=== PATIENT | female | born 1980 ===

== ENCOUNTER 2017-07-01 20:41 | Emergency (ER) | payer SELFPAY ==
[2017-07-01 21:06] VITALS: BP 121/72; PULSE 70; RESP 18; TEMP 98.5; O2SAT 100
[2017-07-01 21:51] LABS: SQUAMOUS EPITHIAL < 1 /hpf (0-5); URINE BACTERIA RARE (<OCC); URINE BILIRUBIN NEGATIVE (NEGATIVE); URINE BLOOD MODERATE (NEGATIVE); URINE CLARITY SLIGHTY-CLOUDY (Clear); URINE COLOR YELLOW (YELLOW); URINE GLUCOSE (UA) NEG (Normal); URINE LEUKOCYTE ESTERASE NEG Leu/uL (Negative); URINE NITRATE NEGATIVE (NEGATIVE); URINE PROTEIN NEGATIVE (NEGATIVE); URINE UROBILINOGEN 0.2-1.0 mg/dL (0.2-1.0)
[2017-07-01 21:54] LABS: BASO % 0.4 % (0.0-2.0); EOS # 0.1 K/uL (0.0-0.7); EOS % 1.4 % (0.0-4.0); HEMOGLOBIN 11.5 g/dL (12.0-16.0); LYMPH # 1.6 K/uL (1.0-4.3); LYMPH % 23.6 % (20.0-40.0); MEAN CELL VOLUME 83.5 fl (81.0-99.0); MEAN CORPUSCULAR HEMOGLOBIN 27.7 pg (27.0-31.0); MEAN CORPUSCULAR HGB CONC 33.1 g/dL (33.0-37.0); MEAN PLATELET VOLUME 8.6 fl (7.2-11.7); MONO # 0.7 K/uL (0.0-0.8); MONO % 11.1 % (0.0-10.0); NEUT # 4.2 K/uL (1.8-7.0); NEUT % 63.5 % (50.0-75.0); RBC 4.17 Mil/uL (3.80-5.20); RED CELL DISTRIBUTION WIDTH 14.6 % (11.5-14.5); WHITE BLOOD COUNT 6.6 K/uL (4.8-10.8)
[2017-07-01 22:03] LABS: ALB/GLOB RATIO 1.4 (1.0-2.1); ALBUMIN 4.1 g/dL (3.5-5.0); ALT/SGPT 31 U/L (9-52); AST/SGOT 19 U/L (14-36); BLOOD UREA NITROGEN 12 mg/dl (7-17); CALCIUM 9.2 mg/dL (8.4-10.2); GFR AFRICAN-AMERICAN > 60; GFR NON-AFRICAN AMERICAN > 60; LIPASE 112 U/L (23-300)
--- NOTE | 2017-07-01 22:48 | ED PDOC ---
HPI: Abdomen Time Seen by Provider: 07/01/17 21:07 Chief Complaint (Nursing): Abdominal Pain Chief Complaint (Provider): Abdominal Pain History Per: Patient History/Exam Limitations: no limitations Onset/Duration Of Symptoms: Days (x2 days) Outside of [place] travel?: Yes Current Symptoms Are (Timing): Still Present Associated Symptoms: denies: Nausea, Vomiting, Diarrhea, Chest Pain, Constipation Additional Complaint(s): Adela Retana, a 36 year old female, with a past medical history of ovarian cysts presents to the ED complaining of abdominal pain x2 days. The patient also reports having some lower abdominal pain which started yesterday. She also states that she had a fever Tmax of 102 when she checked at home. The patient reports that she has taken tylenol with no relief. Denies fever, cough, chest pain, nausea, vomiting, constipation, diarrhea. Abnormal Vaginal Bleeding: No Past Medical History Reviewed: Historical Data, Nursing Documentation, Vital Signs Vital Signs: Last Vital Signs Temp 98.5 F 07/01/17 21:02 Pulse 70 07/01/17 21:02 Resp 18 07/01/17 21:02 BP 121/72 07/01/17 21:02 Pulse Ox 100 07/01/17 22:53 - Medical History Other PMH: Gallstones - Surgical History Surgical History: Cholecystectomy, (x3) Other surgeries: Ovarian cyst - Family History Family History: States: Unknown Family Hx - Social History Current smoker - smoking cessation education provided: No Alcohol: None Drugs: Denies - Immunization History Hx Tetanus Toxoid Vaccination: No Hx Influenza Vaccination: No Hx Pneumococcal Vaccination: No - Home Medications Home Medications: Ambulatory Orders Medication Instructions Recorded Doxycycline Monohydrate 100 mg PO BID #14 tablet 06/07/16 Naproxen [Naprosyn Tab] 375 mg PO BID PRN #15 tab 06/07/16 Naproxen [Naprosyn] 500 mg PO Q12 #14 tab 07/01/17 - Allergies Allergies/Adverse Reactions: Allergies Allergy/AdvReac Type Severity Reaction Status Date / Time Penicillins Allergy Severe RASH Verified 06/07/16 07:34 Review of Systems ROS Statement: Except As Marked, All Systems Reviewed And Found Negative Constitutional: Negative for: Fever Cardiovascular: Negative for: Chest Pain Respiratory: Negative for: Shortness of Breath Gastrointestinal: Positive for: Abdominal Pain. Negative for: Nausea, Vomiting , Diarrhea, Constipation Physical Exam - Reviewed Nursing Documentation Reviewed: Yes Vital Signs Reviewed: Yes - Physical Exam Appears: Positive for: Non-toxic, No Acute Distress Head Exam: Positive for: ATRAUMATIC, NORMAL INSPECTION, NORMOCEPHALIC Skin: Positive for: Normal Color, Warm, Dry Eye Exam: Positive for: Normal appearance, EOMI, PERRL ENT: Positive for: Normal ENT Inspection Neck: Positive for: Normal, Painless ROM, Supple Cardiovascular/Chest: Positive for: Regular Rate, Rhythm, Chest Non Tender. Negative for: Tachycardia Respiratory: Positive for: Normal Breath Sounds. Negative for: Wheezing, Respiratory Distress Gastrointestinal/Abdominal: Positive for: Tenderness (suprapubic tenderness). Negative for: Bowel Sounds, Soft, Guarding, Rebound Back: Positive for: Normal Inspection. Negative for: L CVA Tenderness, R CVA Tenderness Extremity: Positive for: Normal ROM. Negative for: Tenderness, Pedal Edema, Deformity, Swelling Neurologic/Psych: Positive for: Alert, Oriented, Gait - Laboratory Results Result Diagrams: 07/01/17 21:50 07/01/17 21:50 - ECG O2 Sat by Pulse Oximetry: 100 (RA) Pulse Ox Interpretation: Normal Medical Decision Making Medical Decision Makin Initial Impression: 36 year old female presenting with abdominal pain Initial Plan: * CMP * Lipase * Upreg * Udip * CBC * Toradol 10mg IV * Urinalysis * US Pelvis/Transvaginal * Reevaluation 23:50 US Pelvis/Transvaginal FINDINGS: Uterus/cervix: Unremarkable in echogenicity and size measuring 13.0 x 3.8 x 5.2 centimeters. Normal endometrial stripe thickness, measuring 9 mm. No myometrial mass. Right ovary: Unremarkable in echogenicity and size measuring 3.2 x 2.2 x 3.4 cm. No mass. Normal blood flow. Left ovary: Unremarkable in echogenicity and size measuring 2.4 x 1.3 x 2.6 cm. No mass. Normal blood flow. Free fluid: No free fluid. IMPRESSION: Unremarkable sonographic evaluation of the pelvis, as detailed above. Labs reviewed, no clinically significant abnormalities. Patient has been referred to [facility] for follow up. Patient reports improvement in symptoms and is stable for discharge home. Clinical Impression: Abdominal Pain - Scribe Attestation Documented by Oneyda Irene acting as a scribe for José Pool MD. Provider Attestation All medical record entries made by the Scribe were at my direction and personally dictated by me. I have reviewed the chart and agree that the record accurately reflects my personal performance of the history, physical exam, medical decision making, and the department course for this patient. I have also personally directed, reviewed, and agree with the discharge instructions and disposition. Disposition - Clinical Impression Clinical Impression: Abdominal pain in female - Patient ED Disposition Is Patient to be Admitted: No - Disposition Referrals: [facility] [Outside] [facility] [Outside] Disposition: Routine/Home Disposition Time: 23:50 Condition: STABLE Prescriptions: Naproxen [Naprosyn] 500 mg PO Q12 #14 tab Instructions: Abdominal Pain (ED) Forms: [employer] ([place]), [facility] ED School/Work Excuse
--- NOTE | 2017-07-01 23:31 | US ---
EXAM: US Pelvis Complete, Transabdominal CLINICAL HISTORY: 36 years old, female; Pain; Pelvic pain; Additional info: Pelvic pain; HX ov cysts TECHNIQUE: Real-time transabdominal pelvic ultrasound (complete) with image documentation. COMPARISON: No relevant prior studies available. FINDINGS: Uterus/cervix: Unremarkable in echogenicity and size measuring 13.0 x 3.8 x 5.2 centimeters. Normal endometrial stripe thickness, measuring 9 mm. No myometrial mass. Right ovary: Unremarkable in echogenicity and size measuring 3.2 x 2.2 x 3.4 cm. No mass. Normal blood flow. Left ovary: Unremarkable in echogenicity and size measuring 2.4 x 1.3 x 2.6 cm. No mass. Normal blood flow. Free fluid: No free fluid. IMPRESSION: Unremarkable sonographic evaluation of the pelvis, as detailed above.
== END 2017-07-02 00:03 | disposition home or self-care (01) ==
LOC: H.ER 20:41
DX: R10.9 Unspecified abdominal pain (principal); Z88.0 Allergy status to penicillin
CPT/HCPCS: 76856; 80053; 81003; 81025; 83690; 85025; 99283; J1885

== ENCOUNTER 2017-09-03 16:33 | Emergency (ER) | payer OTHER ==
[2017-09-03 16:42] VITALS: BP 114/67; PULSE 67; RESP 16; TEMP 98.5; O2SAT 95
[2017-09-03] MEDS ORDERED: Sodium Chloride 0.9% 1,000 ML IV STA (17:02)
--- NOTE | 2017-09-03 17:16 | ED PDOC ---
HPI: General Adult Time Seen by Provider: 09/03/17 16:46 Chief Complaint (Nursing): Headache History Per: Patient Additional Complaint(s): Pt. states for the past 2 days she's had a frontal headache associated with nausea and 1 episode of non-bloody vomiting. Also states that this morning she took her temperature which was 101.1. She took Tylenol at 1000 without relief of headache. Reports headache is gradual in onset and is atraumatic. Denies numbness, tingling, abdominal pain, hematemesis, chest pain, cough, congestion, sore throat, rash, neck pain or stiffness, diarrhea. Past Medical History Reviewed: Historical Data, Nursing Documentation, Vital Signs Vital Signs: Last Vital Signs Temp 98.5 F 09/03/17 16:39 Pulse 67 09/03/17 16:39 Resp 16 09/03/17 16:39 BP 114/67 09/03/17 16:39 Pulse Ox 95 09/03/17 17:17 - Surgical History Surgical History: Cholecystectomy, (x3) - Family History Family History: States: No Known Family Hx - Immunization History Hx Tetanus Toxoid Vaccination: No Hx Influenza Vaccination: No Hx Pneumococcal Vaccination: No - Home Medications Home Medications: Ambulatory Orders Medication Instructions Recorded Doxycycline Monohydrate 100 mg PO BID #14 tablet 06/07/16 Naproxen [Naprosyn Tab] 375 mg PO BID PRN #15 tab 06/07/16 Naproxen [Naprosyn] 500 mg PO Q12 #14 tab 07/01/17 Metoclopramide [Reglan] 10 mg PO Q8 PRN #15 tab 09/03/17 - Allergies Allergies/Adverse Reactions: Allergies Allergy/AdvReac Type Severity Reaction Status Date / Time Penicillins Allergy Severe RASH Verified 06/07/16 07:34 Review of Systems ROS Statement: Except As Marked, All Systems Reviewed And Found Negative Gastrointestinal: Positive for: Nausea, Vomiting Neurological: Positive for: Headache Physical Exam - Reviewed Nursing Documentation Reviewed: Yes Vital Signs Reviewed: Yes - Physical Exam Appears: Positive for: Well, Non-toxic, No Acute Distress Head Exam: Positive for: ATRAUMATIC, NORMAL INSPECTION, NORMOCEPHALIC Skin: Positive for: Normal Color, Warm. Negative for: Rash Eye Exam: Positive for: EOMI, Normal appearance, PERRL ENT: Positive for: Normal ENT Inspection. Negative for: Pharyngeal Erythema, Tonsillar Exudate, Tonsillar Swelling Neck: Positive for: Normal, Painless ROM, Supple. Negative for: Pain On Movement Of Neck Cardiovascular/Chest: Positive for: Regular Rate, Rhythm Respiratory: Positive for: CNT, Normal Breath Sounds Gastrointestinal/Abdominal: Positive for: Normal Exam, Bowel Sounds, Soft. Negative for: Tenderness Back: Positive for: Normal Inspection. Negative for: L CVA Tenderness, R CVA Tenderness Extremity: Positive for: Normal ROM Neurologic/Psych: Positive for: Alert, Oriented - Laboratory Results Result Diagrams: 09/03/17 17:30 09/03/17 17:30 - ECG O2 Sat by Pulse Oximetry: 95 - Progress ED Course And Treament: Labs ordered. Reglan 10mg IVPB, IV NS bolus ordered. CT head w/o contrast: negative. On re-evaluation, pt. reports complete relief of headache. Disposition - Clinical Impression Clinical Impression: Migraine - Patient ED Disposition Is Patient to be Admitted: No - Disposition Referrals: [facility] [Outside] [facility] [Outside] Disposition: Routine/Home Disposition Time: 19:07 Condition: STABLE Prescriptions: Metoclopramide [Reglan] 10 mg PO Q8 PRN #15 tab PRN Reason: nausea or headache Instructions: General Headache (ED) Forms: Rep (Uzbek)
--- NOTE | 2017-09-03 17:34 | CT ---
PROCEDURE: CT HEAD WITHOUT CONTRAST. HISTORY: headache COMPARISON: None available. TECHNIQUE: Axial computed tomography images were obtained through the head/brain without intravenous contrast. Radiation dose: Total exam DLP = 781.27 mGy-cm. This CT exam was performed using one or more of the following dose reduction techniques: Automated exposure control, adjustment of the mA and/or kV according to patient size, and/or use of iterative reconstruction technique. FINDINGS: HEMORRHAGE: No intracranial hemorrhage. BRAIN: No mass effect or edema. The hensley-white matter differentiation appears intact. VENTRICLES: No hydrocephalus. CALVARIUM: Unremarkable. PARANASAL SINUSES: Unremarkable as visualized. No significant inflammatory changes. MASTOID AIR CELLS: Unremarkable as visualized. No inflammatory changes. OTHER FINDINGS: None. IMPRESSION: No acute intracranial pathology identified.
[2017-09-03 17:45] LABS: BASO % 0.5 % (0.0-2.0); EOS # 0.1 K/uL (0.0-0.7); EOS % 1.5 % (0.0-4.0); HEMATOCRIT 34.5 % (34.0-47.0); MEAN CELL VOLUME 84.5 fl (81.0-99.0); MEAN CORPUSCULAR HEMOGLOBIN 26.8 pg (27.0-31.0); MEAN CORPUSCULAR HGB CONC 31.7 g/dL (33.0-37.0); MEAN PLATELET VOLUME 8.6 fl (7.2-11.7); MONO # 0.5 K/uL (0.0-0.8); MONO % 8.7 % (0.0-10.0); NEUT # 3.3 K/uL (1.8-7.0); NEUT % 55.3 % (50.0-75.0); NRBC % 0.2 % (0.0-0.0); RED CELL DISTRIBUTION WIDTH 14.8 % (11.5-14.5)
[2017-09-03 17:55] LABS: ALB/GLOB RATIO 1.2 (1.0-2.1); ALKALINE PHOSPHATASE 52 U/L (38-126); ALT/SGPT 22 U/L (9-52); AST/SGOT 20 U/L (14-36); BILIRUBIN,TOTAL 0.3 mg/dl (0.2-1.3); BLOOD UREA NITROGEN 12 mg/dl (7-17); CALCIUM 9.2 mg/dL (8.4-10.2); CARBON DIOXIDE 26 mmol/L (22-30); CHLORIDE 104 mmol/L (98-107); GFR AFRICAN-AMERICAN > 60; GLUCOSE,RANDOM 108 mg/dL (65-105); SODIUM 141 mmol/l (132-148); TOTAL PROTEIN 7.2 G/DL (6.3-8.2)
[2017-09-03 18:01] LABS: POTASSIUM 3.4 MMOL/L (3.6-5.0)
== END 2017-09-03 19:25 | disposition home or self-care (01) ==
LOC: H.ER 16:33
DX: G43.909 Migraine, unspecified, not intractable, without status migrainosus (principal)
CPT/HCPCS: 70450; 80053; 81025; 85025; 96361; 96365; 99285; J2765; J7040

== ENCOUNTER 2018-07-17 20:08 | Emergency (ER) | payer SELFPAY ==
[2018-07-17 20:18] VITALS: BP 134/84; PULSE 80; RESP 16; TEMP 98.4; O2SAT 100
[2018-07-17] MEDS ORDERED: Sodium Chloride 0.9% 1,000 ML IV STA (20:38)
--- NOTE | 2018-07-17 21:11 | ED PDOC ---
HPI: Headache Time Seen by Provider: 07/17/18 20:20 Chief Complaint (Nursing): Headache Chief Complaint (Provider): Headache History Per: Patient History/Exam Limitations: no limitations Onset/Duration Of Symptoms: Days Current Symptoms Are (Timing): Still Present Quality: Pressure Additional Complaint(s): 37 y/o female with a PMHx of hyperthyroidism presents to the ED complaining of a pressure like headache associated with pain to her left cheek, neck and shoulder. Patient also reports of feeling like her eye is twitching. Patient states headache began on Saturday after having increased stress related to her family and issues going on at home. Denies depression, anxiety, numbness, focal weakness, blurry vision and an unsteady gait. PMD: Dr. Lazaro Roman. Past Medical History Reviewed: Historical Data, Nursing Documentation, Vital Signs Vital Signs: Last Vital Signs Temp 98.4 F 07/17/18 20:15 Pulse 80 07/17/18 20:15 Resp 16 07/17/18 20:15 BP 134/84 07/17/18 20:15 Pulse Ox 100 07/17/18 20:15 - Medical History PMH: Hyperthyroidism - Surgical History Surgical History: Cholecystectomy, (x3) - Family History Family History: States: Hypertension - Social History Current smoker - smoking cessation education provided: No Alcohol: None Drugs: Denies - Immunization History Hx Tetanus Toxoid Vaccination: No Hx Influenza Vaccination: No Hx Pneumococcal Vaccination: No - Home Medications Home Medications: Ambulatory Orders Medication Instructions Recorded Doxycycline Monohydrate 100 mg PO BID #14 tablet 06/07/16 Naproxen [Naprosyn Tab] 375 mg PO BID PRN #15 tab 06/07/16 Naproxen [Naprosyn] 500 mg PO Q12 #14 tab 07/01/17 Metoclopramide [Reglan] 10 mg PO Q8 PRN #15 tab 09/03/17 Cyclobenzaprine [Flexeril] 5 mg PO Q8 PRN #15 tab 07/17/18 Ibuprofen [Motrin Tab] 600 mg PO Q8 PRN #60 tab 07/17/18 - Allergies Allergies/Adverse Reactions: Allergies Allergy/AdvReac Type Severity Reaction Status Date / Time Penicillins Allergy Severe RASH Verified 06/07/16 07:34 Review of Systems ROS Statement: Except As Marked, All Systems Reviewed And Found Negative (as per HPI) Eyes: Positive for: Other (Twitch). Negative for: Vision Change ENT: Positive for: Other (Left cheek) Musculoskeletal: Positive for: Neck Pain, Shoulder Pain Neurological: Positive for: Headache. Negative for: Weakness, Numbness, Other ( unsteady gait) Physical Exam - Reviewed Nursing Documentation Reviewed: Yes Vital Signs Reviewed: Yes - Physical Exam Appears: Positive for: No Acute Distress (Tired appearing) Head Exam: Positive for: ATRAUMATIC, NORMOCEPHALIC Skin: Positive for: Warm, Dry Eye Exam: Positive for: EOMI, PERRL ENT: Positive for: Other (Mild tenderness to the maxillary area. ) Neck: Negative for: Normal (Mild tenderness to palpation to the midline and left paraspinal c-spine. ) Cardiovascular/Chest: Positive for: Regular Rate, Rhythm. Negative for: Murmur Respiratory: Positive for: Normal Breath Sounds. Negative for: Wheezing, Respiratory Distress Gastrointestinal/Abdominal: Positive for: Soft. Negative for: Tenderness Back: Positive for: Normal Inspection. Negative for: Decreased ROM, Muscle Spasm Extremity: Positive for: Normal ROM. 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 Negative for: Motor/Sensory Deficits, Facial Droop - Laboratory Results Result Diagrams: 07/17/18 21:15 07/17/18 21:15 - ECG O2 Sat by Pulse Oximetry: 100 (RA) Pulse Ox Interpretation: Normal Medical Decision Making Medical Decision Making: Time: 2052 Impression: Headache, paresthesia to her face and left shoulder Differentials include but not limited to headache, cervical radiculopathy, electrolyte abnormality, stress and anxiety. Plan: -- CMP -- Free T4 -- Magnesium -- Phosphorus -- T3 -- Thyroid Stimulating Hormone -- ED Urine -- ED Urine Dipstick -- CBC with differentials -- Flexeril 10 mg PO -- Sodium Chloride IV 1000 mls/hr -- Toradol 15 mg IVP -- IV Insertion Labs unremarkable. 1030p Pt feels better. ELIDIA pt findings and plan of care. Stable for dc w f/u clinic. Scribe Attestation: Documented by Rola Erazo acting as a scribe for Dr. Catarina Motley. Provider Scribe Attestation: All medical record entries made by the Scribe were at my direction and personally dictated by me. I have reviewed the chart and agree that the record accurately reflects my personal performance of the history, physical exam, medical decision making, and the department course for this patient. I have also personally directed, reviewed, and agree with the discharge instructions and disposition. Disposition - Clinical Impression Clinical Impression: Cervical radiculopathy, Stress Counseled Patient/Family Regarding: Studies Performed, Diagnosis, Need For Followup, Rx Given - Disposition Referrals: [facility] [Outside] () Disposition: Routine/Home Disposition Time: 22:47 Condition: STABLE Prescriptions: Cyclobenzaprine [Flexeril] 5 mg PO Q8 PRN #15 tab PRN Reason: muscle spasm Ibuprofen [Motrin Tab] 600 mg PO Q8 PRN #60 tab PRN Reason: Pain, Moderate (4-7) Instructions: Radiculopathy (DC), Stress Forms: [facility]Work Excuse Print Language: [id number]
[2018-07-17 21:47] LABS: BASO % 0.5 % (0.0-2.0); EOS # 0.1 K/uL (0.0-0.7); HEMOGLOBIN 11.8 g/dL (12.0-16.0); LYMPH # 1.8 K/uL (1.0-4.3); LYMPH % 26.4 % (20.0-40.0); MEAN CELL VOLUME 82.8 fl (81.0-99.0); MEAN CORPUSCULAR HEMOGLOBIN 27.4 pg (27.0-31.0); MEAN CORPUSCULAR HGB CONC 33.1 g/dL (33.0-37.0); MEAN PLATELET VOLUME 8.6 fl (7.2-11.7); MONO # 0.6 K/uL (0.0-0.8); MONO % 8.3 % (0.0-10.0); NEUT # 4.2 K/uL (1.8-7.0); NEUT % 63.8 % (50.0-75.0); RBC 4.3 Mil/uL (3.80-5.20); RED CELL DISTRIBUTION WIDTH 14.6 % (11.5-14.5); WHITE BLOOD COUNT 6.7 K/uL (4.8-10.8)
[2018-07-17 21:59] LABS: ALB/GLOB RATIO 1.3 (1.0-2.1); ALBUMIN 4.5 g/dL (3.5-5.0); ALT/SGPT 32 U/L (9-52); AST/SGOT 30 U/L (14-36); BLOOD UREA NITROGEN 9 mg/dl (7-17); CALCIUM 9.5 mg/dL (8.4-10.2); GFR NON-AFRICAN AMERICAN > 60
[2018-07-17 22:29] LABS: T3 1.01 nmol/L (1.49-2.60)
== END 2018-07-17 23:24 | disposition home or self-care (01) ==
LOC: H.ER 20:08
DX: M54.12 Radiculopathy, cervical region (principal); F43.0 Acute stress reaction; E05.90 Thyrotoxicosis, unspecified without thyrotoxic crisis or storm; Z88.0 Allergy status to penicillin
CPT/HCPCS: 80053; 83735; 84100; 84439; 84443; 84480; 85025; 96361; 96374; 99283; J1885; J7030